=== PATIENT | female | born 1985 | race Caucasian/White ===

== ENCOUNTER 2016-12-09 14:37 | Emergency (ER) | payer SELFPAY ==
[~2016-12-09] VITALS: Ht 152.4 cm; Wt 68.0 kg
[~2016-12-09 14:37] MED LIST: CEPH500C3 PO
[2016-12-09 14:45] VITALS: BP 140/91; PULSE 117; RESP 16; TEMP 100.1; O2SAT 100
[2016-12-09] MEDS ORDERED: SODIUM CHLOR 0.9% 1000 ML INJ 1,000 ML IV SCH (15:13)
[2016-12-09] MEDS ORDERED: ONDANSETRON HCL 4 MG/2 ML VIAL IVP ONE (15:15)
[2016-12-09] MEDS ORDERED: MORPHINE SULFATE 4 MG/ML INJ IV PUSH ONE (15:15)
[2016-12-09] MEDS ORDERED: SODIUM CHLORIDE 0.9% FLUSH 10 ML FLUSH IV FLUSH PRN (15:15)
[2016-12-09 15:34] VITALS: O2SAT 97
[2016-12-09 15:36] LABS: AUTOMATED NEUTROPHIL # 8.1 TH/MM3 (1.8-7.7); BASOPHIL # 0.1 TH/MM3 (0-0.2); BASOPHIL % 0.6 % (0.0-2.0); LYMPH % 8.4 % (9.0-44.0); LYMPHOCYTE # 0.9 TH/MM3 (1.0-4.8); MEAN CELL VOLUME 86.3 FL (80.0-100.0); MEAN CORPUSCULAR HEMOGLOBIN 27.8 PG (27.0-34.0); MEAN CORPUSCULAR HGB CONC 32.2 % (32.0-36.0); MONO % 13.7 % (0.0-8.0); NEUT % 77.3 % (16.0-70.0); PLATELET COUNT 208 TH/MM3 (150-450); RED BLOOD COUNT 4.64 MIL/MM3 (4.00-5.30); RED CELL DISTRIBUTION WIDTH 12.1 % (11.6-17.2); WHITE BLOOD COUNT 10.5 TH/MM3 (4.0-11.0)
[2016-12-09 15:38] LABS: BLOOD, URINE SMALL (NEG); GLUCOSE,URINE NEG (NEG); KETONE, URINE 40 mg/dL (NEG); NITRITE,URINE POS (NEG)
[2016-12-09 15:42] LABS: BACTERIA, URINE MANY /hpf; COMMENT (UR) CULTURE INDICATED; CULTURE IF INDICATED CULTURE INDICATED; RBC, URINE 0-3 /hpf (0-3); URINE COLOR YELLOW (YELLW/STRAW); WBC, URINE 15-19 /hpf (0-5)
[2016-12-09 15:43] LABS: CHLORIDE 101 MEQ/L (98-107); POTASSIUM 3.9 MEQ/L (3.5-5.1); SODIUM (NA) 135 MEQ/L (136-145)
[2016-12-09 15:46] LABS: HEMO FLAGS DIFF FINAL
[2016-12-09 15:47] LABS: ANION GAP 9 MEQ/L (5-15); BLOOD UREA NITROGEN 6 MG/DL (7-18)
[2016-12-09 15:50] LABS: ALT (GPT) 20 U/L (10-53); AST (GOT) 19 U/L (15-37); GLOMERULAR FILTRATION RATE 115 ML/MIN (>89)
[2016-12-09 15:51] LABS: TOTAL BILIRUBIN ADULT 0.3 MG/DL (0.2-1.0)
[2016-12-09 15:53] LABS: ALKALINE PHOSPHATASE 72 U/L (45-117)
[2016-12-09] MEDS ORDERED: ACETAMINOPHEN 325 MG TAB PO ONE (16:00)
[2016-12-09] MEDS ORDERED: cefTRIAXone INJ 1,000 MG in SODIUM CHLORIDE 0.9% INJ 100 ML IV ONE (16:00)
[2016-12-09] MEDS ORDERED: IOHEXOL 350 MG/ML 10 ML VIAL (for RAD DIAG) IVCONTRAST ONE (16:10)
--- NOTE | 2016-12-09 16:19 | PD ---
HPI Chief Complaint: Abdominal Pain Time Seen by Provider: 15:10 Travel History International Travel<30 days: No Contact w/Intl Traveler<30days: No Traveled to known affect area: No History of Present Illness HPI 30 yo F c/o RLQ pain, fever, nausea and vomiting with anorexia for about 4 days. No diarrhea. Pain constant. LMP 2 weeks ago. No VB/VD. No urinary complaints. No similar prior symptoms. Onset gradual. PFSH Past Medical History Medical History: Denies Significant Hx Diminished Hearing: No Influenza Vaccination: No ?: Not LMP: 11/17/2016 : 1 Para: 1 Past Surgical History Surgical History: No Previous Surgery Social History Alcohol Use: Yes (daily ) Tobacco Use: No Substance Use: No Allergies-Medications (Allergen,Severity, Reaction): Coded Allergies: codeine (Unverified Allergy, Unknown, UNKNOWN, 12/09/16) PATIENT STATES " I NOT SURE WHAT HAPPENS TO ME WHEN I TAKE IT" Reported Meds & Prescriptions Reported Meds & Active Scripts Active No Active Prescriptions or Reported Medications Review of Systems Except as stated in HPI: all other systems reviewed are Neg General / Constitutional: Positive: Fever Gastrointestinal: Positive: Nausea, Vomiting, Abdominal Pain Physical Exam Narrative GENERAL: 30 yo F, WNWD, NAD SKIN: Warm and dry. HEAD: Atraumatic. Normocephalic. EYES: Pupils equal and round. No scleral icterus. No injection or drainage. ENT: No nasal bleeding or discharge. Mucous membranes pink and moist. NECK: Trachea midline. No JVD. CARDIOVASCULAR: Regular rate and rhythm. RESPIRATORY: No accessory muscle use. Clear to auscultation. Breath sounds equal bilaterally. GASTROINTESTINAL: Soft. + TTP RLQ. No flank TTP. MUSCULOSKELETAL: Extremities without clubbing, cyanosis, or edema. No obvious deformities. NEUROLOGICAL: Awake and alert. No obvious cranial nerve deficits. Motor grossly within normal limits. Five out of 5 muscle strength in the arms and legs. Normal speech. PSYCHIATRIC: Appropriate mood and affect; insight and judgment normal. Data Data Last Documented VS Vital Signs Date Time Temp Pulse Resp B/P (MAP) Pulse Ox O2 Delivery O2 Flow Rate FiO2 12/09/16 15:34 97 Room Air 12/09/16 14:45 100.1 117 16 140/91 (107) VS reviewed Orders Orders Complete Blood Count With Diff (12/09/16 15:13) Comprehensive Metabolic Panel (12/09/16 15:13) Lipase (12/09/16 15:13) Urinalysis - C+S If Indicated (12/09/16 15:13) Ct Abd/Pel W Iv Contrast(Rout) (12/09/16 15:13) Iv Access Insert/Monitor (12/09/16 15:13) Ecg Monitoring (12/09/16 15:13) Oximetry (12/09/16 15:13) Ondansetron Inj (Zofran Inj) (12/09/16 15:15) Sodium Chlor 0.9% 1000 Ml Inj (Ns 1000 M (12/09/16 15:13) Sodium Chloride 0.9% Flush (Ns Flush) (12/09/16 15:15) Morphine Inj (Morphine Inj) (12/09/16 15:15) Ed Urine Pregnancytest Poc (12/09/16 15:13) Urine Culture (12/09/16 15:26) Ceftriaxone Inj (Rocephin Inj) (12/09/16 16:00) Acetaminophen (Tylenol) (12/09/16 16:00) Iohexol 350 Inj (Omnipaque 350 Inj) (12/09/16 16:10) Labs Laboratory Tests Test 12/09/16 15:26 12/09/16 15:28 Urine Color YELLOW Urine Turbidity CLOUDY Urine pH 6.0 Urine Specific Rinard 1.012 Urine Protein TRACE mg/dL Urine Glucose (UA) NEG mg/dL Urine Ketones 40 mg/dL Urine Occult Blood SMALL Urine Nitrite POS Urine Bilirubin NEG Urine Leukocyte Esterase MOD Urine RBC 0-3 /hpf Urine WBC 15-19 /hpf Urine Squamous Epithelial Cells 6-8 /hpf Urine Bacteria MANY /hpf Microscopic Urinalysis Comment CULTURE INDICATED White Blood Count 10.5 TH/MM3 Red Blood Count 4.64 MIL/MM3 Hemoglobin 12.9 GM/DL Hematocrit 40.0 % Mean Corpuscular Volume 86.3 FL Mean Corpuscular Hemoglobin 27.8 PG Mean Corpuscular Hemoglobin Concent 32.2 % Red Cell Distribution Width 12.1 % Platelet Count 208 TH/MM3 Mean Platelet Volume 7.7 FL Neutrophils (%) (Auto) 77.3 % Lymphocytes (%) (Auto) 8.4 % Monocytes (%) (Auto) 13.7 % Eosinophils (%) (Auto) 0.0 % Basophils (%) (Auto) 0.6 % Neutrophils # (Auto) 8.1 TH/MM3 Lymphocytes # (Auto) 0.9 TH/MM3 Monocytes # (Auto) 1.4 TH/MM3 Eosinophils # (Auto) 0.0 TH/MM3 Basophils # (Auto) 0.1 TH/MM3 CBC Comment DIFF FINAL Differential Comment Blood Urea Nitrogen 6 MG/DL Creatinine 0.62 MG/DL Random Glucose 97 MG/DL Total Protein 7.7 GM/DL Albumin 3.4 GM/DL Calcium Level 8.9 MG/DL Alkaline Phosphatase 72 U/L Aspartate Amino Transf (AST/SGOT) 19 U/L Alanine Aminotransferase (ALT/SGPT) 20 U/L Total Bilirubin 0.3 MG/DL Sodium Level 135 MEQ/L Potassium Level 3.9 MEQ/L Chloride Level 101 MEQ/L Carbon Dioxide Level 25.0 MEQ/L Anion Gap 9 MEQ/L Estimat Glomerular Filtration Rate 115 ML/MIN Lipase 126 U/L MDM Medical Decision Making Medical Screen Exam Complete: Yes Emergency Medical Condition: Yes Medical Record Reviewed: Yes Differential Diagnosis Constipation, Gastritis, Acute Cholecystitis, Biliary Colic, Pancreatitis, CASTRO , Hepatitis, Bowel Obstruction, Cystitis, Mesenteric Ischemia, AAA, Appendicitis , Renal Stone/Hydronephrosis, GERD, perforated viscous Narrative Course CBC & BMP Diagram 12/09/16 15:28 Total Protein 7.7, Albumin 3.4, Calcium Level 8.9, Alkaline Phosphatase 72, Aspartate Amino Transf (AST/SGOT) 19, Alanine Aminotransferase (ALT/SGPT) 20, Total Bilirubin 0.3 Lipase normal UA: UTI present UPREG: Negative Last Impressions Abdomen/Pelvis CT 12/09/16 1513 Signed Impressions: Service Date/Time: Friday, December 09, 2016 16:05 - CONCLUSION: 1. Heterogeneous enhancement of the right kidney with perinephric fluid, with imaging appearance characteristic of pyelonephritis. 2. The appendix is normal. Mina Hartley MD 2L NS 1g Rocephin dc with Cipro 500mg x 1 week return precautions discussed Diagnosis Primary Impression: Pyelonephritis Referrals: Primary Care Physician 2 days Additional Instructions: IF SYMPTOMS WORSEN, ESPECIALLY OVER THE NEXT 8 HOURS, RETURN TO THE ER. IF FEVER PERSISTS INTO TOMORROW, RETURN TO THE ER. GENERALLY IF YOU BELIEVE A RETURN VISIT TO THE ER IS NECESSARY PLEASE COME BACK WITHOUT DELAY. Med/Other Pt SpecificInfo: Prescription(s) given Scripts Ciprofloxacin (Cipro) 500 Mg Tab 500 MG PO BID for Infection, #14 TAB 0 Refills Prov: Curtis Medina MD 12/09/16 Disposition: 01 DISCHARGE HOME Condition: Stable Curtis Medina MD Dec 09, 2016 16:19
--- NOTE | 2016-12-09 16:21 | RADRPT ---
EXAM DATE/TIME: 12/09/2016 16:05 [facility] COMPARISON: No previous studies available for comparison. INDICATIONS : Right lower quadrant pain and fever for one week. Evaluate for appendicitis. IV CONTRAST: 95 cc Omnipaque 350 (iohexol) IV ORAL CONTRAST: No oral contrast ingested. RADIATION DOSE: 11.71 CTDIvol (mGy) MEDICAL HISTORY : None SURGICAL HISTORY : None. ENCOUNTER: Initial ACUITY: 1 week PAIN SCALE: 5/10 LOCATION: Right lower quadrant TECHNIQUE: Volumetric scanning of the abdomen and pelvis was performed. Using automated exposure control and ad justment of the mA and/or kV according to patient size, radiation dose was kept as low as reasonably achievable to obtain optimal diagnostic quality images. DICOM format image data is available electro nically for review and comparison. FINDINGS: Liver, spleen, pancreas, adrenals, left kidney unremarkable. The right kidney demonstrates inhomogene ous enhancement with areas of decreased attenuation in the upper, mid and to a lesser extent lower po le. There is slight perinephric fluid near the upper pole of the right kidney. The imaging appearance would be most characteristic of pyelonephritis. The renal arteries and renal veins are patent. Urina ry bladder, uterus, bilateral ovaries are unremarkable. Trace fluid in the cul-de-sac. Appendix kathy l. Small bowel and large bowel are unremarkable. CONCLUSION: 1. Heterogeneous enhancement of the right kidney with perinephric fluid, with imaging appearance bruce acteristic of pyelonephritis. 2. The appendix is normal. Mina Hartley MD on December 09, 2016 at 16:17 Board Certified Radiologist. This report was verified electronically.
[2016-12-09] MEDS ORDERED: CIPR-9 PO (16:58)
[2016-12-09] MEDS ORDERED: CIPROFLOXACIN 500 MG TAB PO ONE (17:00)
[2016-12-09] MEDS ORDERED: SODIUM CHLOR 0.9% 1000 ML INJ 1,000 ML IV ONE (17:00)
[2016-12-09 18:15] VITALS: BP 104/65; TEMP 99.8
== END 2016-12-09 18:35 | disposition home or self-care (01) ==
LOC: PHED 14:37
DX: N12 Tubulo-interstitial nephritis, not specified as acute or chronic (principal); B96.20 Unspecified Escherichia coli [E. coli] as the cause of diseases classified elsewhere
CPT/HCPCS: 74177; 80053; 81001; 83690; 84703; 85025; 87077; 87086; 87186; 96361; 96365; 96375; 99285; J0696; J2270; J2405; J7030; Q9967